=== PATIENT | male | born 1945 | race Caucasian/White ===

== ENCOUNTER → 2016-08-15 | Outpatient (CLI) | payer MEDICARE, OTHER ==
--- NOTE | 2016-08-15 12:24 | KCIC ---
PROCEDURE Chest CT without contrast. HISTORY Lung nodule follow-up TECHNIQUE Noncontrast CT imaging was performed of the chest, multiplanar reconstruction images submitted. Exposure: One or more of the following individualized dose reduction techniques were utilized for this exam: 1. Automated exposure control. 2. Adjustment of the mA and/or kV according to patient size. 3. Use of iterative reconstruction technique. COMPARISON August 21, 2015 FINDINGS There are again areas of bronchiectasis nodularity of the right middle lobe and the lingula. There are again some partially calcified nodules of the right and left upper lobes. Some grouped foci of nodularity posteriorly of the left upper lobe are less prominent although nodule of the left upper lobe axial image 48 series 2 up to 0.6 cm is new. More medial left upper lobe nodule axial image 63 up to 0.5 cm is smaller. Mild bronchiectasis and nodularity more medially of the right upper lobe is similar. There are some new small foci of grouped nodularity of the right upper lobe such as seen on axial images 22-27. Previously seen small nodules of the left lower lobe are less prominent such as seen on axial images 52-54. Previously seen right lower lobe nodules are overall similar. There again has been a median sternotomy. There is no new abnormal pericardial or pleural fluid, pneumothorax, lobar infiltrate. There is coronary calcification. Thoracic aortic caliber is similar. Major airways are patent. There are again some scattered hypodense foci of the visualized liver not convincingly changed, largest with density measurements suggestive of cysts. IMPRESSION 1. Comparing with August 2015 exam, there has been some variable change of bilateral lung nodules with some new foci of nodularity although other nodules which are less prominent. There are again some partially calcified nodules suggestive of component of old granulomatous disease. There is again bronchiectasis. While findings are more likely to be on a post inflammatory or postinfectious basis, given the new nodules, shorter term follow up such as in 3-6 months is recommended. Electronically signed by: Jamal Hernandez MD (Aug 15, 2016 12:22:06)
== END | disposition home or self-care (01) ==
LOC: KCIC CT 10:18
PROVIDERS: ATTEND Internal Medicine Critical Care Medicine
DX: R91.1 Solitary pulmonary nodule (principal)
CPT/HCPCS: 71250

== ENCOUNTER 2017-01-01 10:27 | Inpatient (IN) | payer MEDICARE, OTHER ==
[~2017-01-01] VITALS: Ht 170.2 cm; Wt 60.4 kg
--- NOTE | 2017-01-01 10:32 | PHYS DOC ---
Adult General Chief Complaint Chief Complaint: HEMATEMESIS/VOMITING BLOOD HPI HPI Patient is a 71 year old male who presents with coughing up blood. He states his been feeling completely normal and this morning he cleared his throat and he noticed some dark red blood. He states he did a couple more times and had small amounts and then had some bleeding out of his nose. He denies fevers chills nausea vomiting shortness of breath. He is not on anticoagulation other than aspirin. He has a follow-up appointment on Monday with Dr. Elsie Mckeon. Review of Systems Review of Systems Constitutional: Denies fever or chills [] Eyes: Denies change in visual acuity, redness, or eye pain [] HENT: Denies nasal congestion or sore throat [] Respiratory: Denies cough or shortness of breath [] Cardiovascular: No additional information not addressed in HPI [] GI: Denies abdominal pain, nausea, vomiting, bloody stools or diarrhea [] : Denies dysuria or hematuria [] Musculoskeletal: Denies back pain or joint pain [] Integument: Denies rash or skin lesions [] Neurologic: Denies headache, focal weakness or sensory changes [] Endocrine: Denies polyuria or polydipsia [] Current Medications Current Medications Current Medications Medications (Trade) Dose Ordered Sig/Preethi Start Time Stop Time Status Last Admin Dose Admin Info (Do NOT chart on this entry -- for MONITORING) 1 each PRN DAILY PRN 01/01/17 13:30 01/03/17 13:29 Iohexol (Omnipaque 300 Mg/ml) 75 ml 1X ONCE 01/01/17 13:30 01/01/17 13:31 DC 01/01/17 13:34 75 ML Allergies Allergies Allergies Coded Allergies Type Severity Reaction Last Updated Verified codeine Allergy Intermediate Nausea and Vomiting 01/01/17 Yes Physical Exam Physical Exam Constitutional: Well developed, well nourished, no acute distress, non-toxic appearance. [] HENT: Normocephalic, atraumatic, bilateral external ears normal, oropharynx moist, no oral exudates, nose normal. Small amount of dried blood in the anterior left Murphy, small abrasion in the right anterior left Murphy, no obvious bleeding at this time. Eyes: PERRLA, EOMI, conjunctiva normal, no discharge. [] Neck: Normal range of motion, no tenderness, supple, no stridor. [] Cardiovascular:Heart rate regular rhythm, no murmur [] Lungs & Thorax: Bilateral breath sounds clear to auscultation [] Abdomen: Bowel sounds normal, soft, no tenderness, no masses, no pulsatile masses. [] Skin: Warm, dry, no erythema, no rash. [] Back: No tenderness, no CVA tenderness. [] Extremities: No tenderness, no cyanosis, no clubbing, ROM intact, no edema. [] Neurologic: Alert and oriented X 3, normal motor function, normal sensory function, no focal deficits noted. [] Psychologic: Affect normal, judgement normal, mood normal. [] Current Patient Data Vital Signs Vital Signs Date Time Temp Pulse Resp B/P (MAP) Pulse Ox O2 Delivery O2 Flow Rate FiO2 01/01/17 14:00 56 16 164/76 (105) 98 Room Air 01/01/17 10:39 98.6 98.6 Lab Values Laboratory Tests Test 01/01/17 11:25 01/01/17 13:56 White Blood Count 7.3 x10^3/uL (4.0-11.0) Red Blood Count 4.80 x10^6/uL (4.30-5.70) Hemoglobin 14.6 g/dL (13.0-17.5) Hematocrit 44.0 % (39.0-53.0) Mean Corpuscular Volume 92 fL (79-100) Mean Corpuscular Hemoglobin 30 pg (25-35) Mean Corpuscular Hemoglobin Concent 33 g/dL (31-37) Red Cell Distribution Width 13.5 % (11.5-14.5) Platelet Count 209 x10^3/uL (140-400) Neutrophils (%) (Auto) 63 % (31-73) Lymphocytes (%) (Auto) 20 % (24-48) L Monocytes (%) (Auto) 11 % (0-9) H Eosinophils (%) (Auto) 4 % (0-3) H Basophils (%) (Auto) 1 % (0-3) Neutrophils # (Auto) 4.6 x10^3uL (1.8-7.7) Lymphocytes # (Auto) 1.5 x10^3/uL (1.0-4.8) Monocytes # (Auto) 0.8 x10^3/uL (0.0-1.1) Eosinophils # (Auto) 0.3 x10^3/uL (0.0-0.7) Basophils # (Auto) 0.1 x10^3/uL (0.0-0.2) Prothrombin Time 12.9 SEC (11.7-14.0) Prothrombin Time INR 1.0 (0.8-1.1) PTT 33 SEC (24-38) Sodium Level 142 mmol/L (136-145) Potassium Level 4.2 mmol/L (3.5-5.1) Chloride Level 106 mmol/L (98-107) Carbon Dioxide Level 28 mmol/L (21-32) Anion Gap 8 (6-14) Blood Urea Nitrogen 20 mg/dL (8-26) Creatinine 0.8 mg/dL (0.7-1.3) Estimated GFR (Cockcroft-Gault) 95.8 Glucose Level 94 mg/dL (70-99) Calcium Level 9.0 mg/dL (8.5-10.1) Total Bilirubin 0.6 mg/dL (0.2-1.0) Direct Bilirubin 0.2 mg/dL (0.0-0.2) Aspartate Amino Transferase (AST) 18 U/L (15-37) Alanine Aminotransferase (ALT) 24 U/L (16-63) Alkaline Phosphatase 70 U/L (46-116) Total Protein 6.9 g/dL (6.4-8.2) Albumin 3.5 g/dL (3.4-5.0) Urine Collection Type Unknown Urine Color Yellow Urine Clarity Clear Urine pH 7.0 Urine Specific [place] 1.025 Urine Protein Negative mg/dL (NEG-TRACE) Urine Glucose (UA) Negative mg/dL (NEG) Urine Ketones (Stick) Negative mg/dL (NEG) Urine Blood Negative (NEG) Urine Nitrite Negative (NEG) Urine Bilirubin Negative (NEG) Urine Urobilinogen Dipstick 0.2 mg/dL (0.2 mg/dL) Urine Leukocyte Esterase Negative (NEG) Urine RBC 3-5 /HPF (0-2) Urine WBC Occ /HPF (0-4) Urine Bacteria 0 /HPF (0-FEW) Urine Mucus Slight /LPF Laboratory Tests 01/01/17 11:25 Laboratory Tests 01/01/17 11:25 EKG EKG EKG shows sinus bradycardia with a rate of [address] elevations or T -wave inversions appreciated, normal axis, QTC 380 ms, as interpreted by me. Radiology/Procedures Radiology/Procedures [facility] [address] [place] [address] IMAGING REPORT Signed PATIENT: DANNA VILLEDA ACCOUNT: [id number] : 1945 LOCATION: ER AGE: 71 SEX: M EXAM STATUS: REG ER ORD. PHYSICIAN: LORENZO OMALLEY MD REASON: Hemoptysis PROCEDURE: CT ANGIOGRAPHY CHEST Indication: Hemoptysis. Technique: Axial images and coronal and sagittal maximum intensity projection reformatted images are provided. Chest radiograph from today and CT from August 15, 2016 were reviewed in comparison. 75 mL of intravenous Omnipaque 300 was administered without complication. One or more of the following individualized dose reduction techniques were utilized for this examination: 1. Automated exposure control 2. Adjustment of the mA and/or kV according to patient size 3. Use of iterative reconstruction technique Findings: Contrast bolus is satisfactory. There is no filling defect to suggest pulmonary embolism. There is atheromatous disease in the thoracic aorta. The heart is not enlarged. Coronary artery calcifications are noted. Central airways are patent. There is no pleural effusion. Multiple noncalcified pulmonary nodules are noted on the right. A few nodules demonstrate calcifications but not clearly a benign calcification pattern. These nodules measure up to 12 mm in size. There are a few nodules on the left as well. There is also right middle lobe bronchiectasis. There is minimal groundglass opacity in the left lower lobe. Low-density lesions within the liver measure up to 11 mm in size, could represent small cysts. These are incompletely characterized. There are degenerative changes in the spine. Median sternotomy wires are noted. Impression: 1. Negative for pulmonary embolism. 2. Multiple noncalcified pulmonary nodules, greater on the right, correspond to the areas of concern on recent chest radiograph. Findings have increased from prior CT chest. Small size would make percutaneous sampling technically difficult. A few of the larger nodules may be able to be evaluated by PET/CT. Alternatively, 3 month follow-up would be recommended of these nonincidental nodules. Nodules may be infectious, inflammatory, or neoplastic. DICTATED and SIGNED BY: REJI ROMANO MD DATE: 01/01/17 4229 CC: LORENZO OMALLEY MD; ELSIE MCKEON MD ~ Impressions: Hemoptysis History of MAC Course & Med Decision Making Course & Med Decision Making Pertinent Labs and Imaging studies reviewed. (See chart for details) He's had several episodes of coughing up blood into a tissue. He had a small amount of dried blood in his nose but there is nothing in the posterior pharynx that makes me suspect this is coming from his nose. I do not feel comfortable sending him home at this time as his bleeding has gotten worse briefly. 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 Spoke with Dr. Elsie Mckeon excepts the patient for admission. Spoke with regarding the patient's hemoptysis and possible need for hospital via if it persists. She is aware the patient and formal consultation has been placed. Patient's in stable condition he and his family is agreeable to plan and being admitted with interim orders written. Dragon Disclaimer Dragon Disclaimer This electronic medical record was generated, in whole or in part, using a voice recognition dictation system. Departure Departure Impression: Primary Impression: Hemoptysis Disposition: ADMITTED INPATIENT Admitting Physician: Elsie Mckeon Condition: STABLE Referrals: ELSIE MCKEON MD (PCP) LORENZO OMALLEY MD Jan 01, 2017 10:32
[2017-01-01 11:41] LABS: BASO # 0.1 x10^3/uL (0.0-0.2); BASO % 1 % (0-3); EOS % 4 % (0-3); HEMOGLOBIN 14.6 g/dL (13.0-17.5); LYMPH # 1.5 x10^3/uL (1.0-4.8); LYMPH % 20 % (24-48); MEAN CORPUSCULAR HEMOGLOBIN 30 pg (25-35); MEAN CORPUSCULAR HGB CONC 33 g/dL (31-37); MEAN CORPUSCULAR VOLUME 92 fL (79-100); MONO % 11 % (0-9); NEUT % 63 % (31-73); PLATELET COUNT 209 x10^3/uL (140-400); RED CELL DISTRIBUTION WIDTH 13.5 % (11.5-14.5); WHITE BLOOD COUNT 7.3 x10^3/uL (4.0-11.0)
[2017-01-01 11:47] LABS: CREATININE 0.8 mg/dL (0.7-1.3); GFR 95.8; POTASSIUM 4.2 mmol/L (3.5-5.1)
[2017-01-01 11:53] LABS: ALBUMIN 3.5 g/dL (3.4-5.0); DIRECT BILIRUBIN 0.2 mg/dL (0.0-0.2); TOTAL BILIRUBIN 0.6 mg/dL (0.2-1.0); TOTAL PROTEIN 6.9 g/dL (6.4-8.2)
[2017-01-01 12:01] LABS: PROTHROMBIN TIME PATIENT 12.9 SEC (11.7-14.0)
--- NOTE | 2017-01-01 12:54 | RAD ---
Indication: Hemoptysis. Technique: Two-view chest radiograph was obtained. Comparison is from March 14, 2012. Findings: Nodular opacities are noted in the right mid and lower lung field. The left lung is relatively clear. The heart is not enlarged and there is no heart failure. There is no pleural effusion. There are median sternotomy wires noted. Leads overlie the patient. Impression: Nodular opacities on the right. These could be infectious or inflammatory in etiology. Neoplastic etiology cannot be excluded. At the minimum, follow-up chest radiograph in 4-6 weeks is required.
[2017-01-01] MEDS ORDERED: IOHEXOL 300 MG/ML 75 ML VIAL IV ONE (13:30)
[2017-01-01] MEDS ORDERED: CONTRAST GIVEN MC PRN (13:30)
--- NOTE | 2017-01-01 13:51 | EKG ---
[facility] [address] [place] [address] Test Date: 2017-01-01 Test Time: 11:10:12 Pat Name: DANNA VILLEDA Department: Room: Gender: M [employer] Chair: : 1945 Requested By: LORENZO OMALLEY Order Number: [id number] Reading MD: Molly Vela Measurements Intervals [place] Rate: 49 P: 64 FL: 166 QRS: 30 QRSD: 90 T: 36 QT: 418 QTc: 380 Interpretive Statements SINUS BRADYCARDIA LEFT ATRIAL ABNORMALITY QRS(T) CONTOUR ABNORMALITY CONSIDER ANTEROSEPTAL MYOCARDIAL DAMAGE Electronically Signed On 01-01-2017 20:21:17 CDT by Molly Vela
--- NOTE | 2017-01-01 14:02 | RAD ---
Indication: Hemoptysis. Technique: Axial images and coronal and sagittal maximum intensity projection reformatted images are provided. Chest radiograph from today and CT from August 15, 2016 were reviewed in comparison. 75 mL of intravenous Omnipaque 300 was administered without complication. One or more of the following individualized dose reduction techniques were utilized for this examination: 1. Automated exposure control 2. Adjustment of the mA and/or kV according to patient size 3. Use of iterative reconstruction technique Findings: Contrast bolus is satisfactory. There is no filling defect to suggest pulmonary embolism. There is atheromatous disease in the thoracic aorta. The heart is not enlarged. Coronary artery calcifications are noted. Central airways are patent. There is no pleural effusion. Multiple noncalcified pulmonary nodules are noted on the right. A few nodules demonstrate calcifications but not clearly a benign calcification pattern. These nodules measure up to 12 mm in size. There are a few nodules on the left as well. There is also right middle lobe bronchiectasis. There is minimal groundglass opacity in the left lower lobe. Low-density lesions within the liver measure up to 11 mm in size, could represent small cysts. These are incompletely characterized. There are degenerative changes in the spine. Median sternotomy wires are noted. Impression: 1. Negative for pulmonary embolism. 2. Multiple noncalcified pulmonary nodules, greater on the right, correspond to the areas of concern on recent chest radiograph. Findings have increased from prior CT chest. Small size would make percutaneous sampling technically difficult. A few of the larger nodules may be able to be evaluated by PET/CT. Alternatively, 3 month follow-up would be recommended of these nonincidental nodules. Nodules may be infectious, inflammatory, or neoplastic.
[2017-01-01 14:04] LABS: BILIRUBIN,URINE NEGATIVE (NEG); GLUCOSE,URINE NEGATIVE (NEG); NITRITE,URINE NEGATIVE (NEG); PROTEIN,URINE NEGATIVE (NEG-TRACE); UROBILINOGEN,URINE 0.2 mg/dL (0.2 mg/dL)
[2017-01-01 14:16] LABS: BACTERIA,URINE 0 /HPF (0-FEW); WBC,URINE OCC /HPF (0-4)
[2017-01-01] MEDS ORDERED: ONDANSETRON PF 4 MG/2 ML VIAL. IV PRN (14:45)
[2017-01-01 15:40] VITALS: BP 167/68
[2017-01-01] MEDS ORDERED: METO25TA4 PO (15:57)
[2017-01-01] MEDS ORDERED: SIMV40TA3 PO (15:57)
[2017-01-01] MEDS ORDERED: TIZA4TAB PO (15:57)
[2017-01-01] MEDS ORDERED: ASPI325T8 PO (15:57)
[2017-01-01] MEDS ORDERED: OXYB5TAB7 PO (15:57)
[2017-01-01] MEDS ORDERED: SIMV20TA3 PO (15:59)
[2017-01-01] MEDS: IPRATRPIUM/ALBUTEROL 0.5/2.5MG 3 ML NEBU. NEB SCH ×2 (17:27→19:36)
[2017-01-01] MEDS: methylPREDNISolone SOD SUCC PF 40 MG/ML VIAL. IV SCH (18:13)
[2017-01-01 22:59] VITALS: BP 125/67
[2017-01-02] MEDS: methylPREDNISolone SOD SUCC PF 40 MG/ML VIAL. IV SCH ×4 (00:53→22:02)
[2017-01-02 03:00] VITALS: BP 114/64
--- NOTE | 2017-01-02 05:15 | ACF ---
Admission Forms Criteria GENERAL ADMISSION CRITERIA (Place 'X' for any and all applicable criteria): Admission is indicated for ANY ONE of the following: [ ]I. Hemodynamic instability as indicated by ANY ONE of the following(1)(2) (3)(4)(5): [ ]a) Vital sign abnormality not readily corrected by appropriate treatment within 12 to 24 hours indicated by ANY ONE of the following: [ ]i) Hypotension [ ]ii) Symptomatic Tachycardia unresponsive to treatment (eg , analgesia, fluids, sedation as indicated) [ ]iii) Orthostatic vital sign changes unresponsive to treatment (eg, fluids) [ ]b) Vital sign abnormality that is severe indicated by ANY ONE of the following: [ ]i) Inadequate perfusion indicated by ANY ONE of the following: [ ]1) Lactic acidosis (greater than 2 mmol/L) [ ]2) New abnormal capillary refill (greater than 3 seconds) [ ]3) Other metabolic acidosis (arterial pH less than 7.35) not otherwise explained [ ]4) Reduced urine output [ ]5) Altered mental status [ ]6) Myocardial Ischemia [ ]v) Mean arterial pressure[A] less than 60 mm Hg [ ]vi) Mean arterial pressure[A] less than 70 mm Hg after 30 minutes of appropriate treatment (eg, fluid resuscitation) [ ]vii) IV inotropic or vasopressor medication required to maintain adequate blood pressure or perfusion [ ]viii) Sustained heart rate greater than 120 beats per minute in adult or child 6 years or older[B]] [ ]II. Hypertension requiring inpatient treatment as indicated by ANY ONE of the following(6)(7)(8): [ ]a) SBP greater than 220 mm Hg or DBP greater than 120 mm Hg despite treatment [ ]b) SBP greater than 140 mm Hg or DBP greater than 100 mm Hg with evidence of acute end organ damage as indicated by ANY ONE of the following: [ ]i) Encephalopathy [ ]ii) Acute renal failure as indicated by new onset of ANY ONE of the following(9)(10)(11)(12)(13): [ ]1) A 3-fold rise in serum creatinine from baseline [ ]2) Serum creatinine greater than 4 mg/dL ( 354 micromoles/L) with acute rise greater than 0.5 mg/dL (44.2 micromoles/L) [ ]3) Reduction of more than 75% in estimated glomerular filtration rate from baseline [ ]4) Estimated glomerular filtration rate less than 35 mL/min/1.73m2 (0.59 mL/sec/1.73m2) in child up to 18 years of age [ ]5) Cessation of urine output indicated by ALL of the following: [ ]A. Adequate volume status [ ]B. Inadequate urine output as indicated by ANY ONE of the following: [ ]a. Urine output less than 0.3 mL/kg/hr for 24 hours [ ]b. Anuria (urine output less than 0.1 mL/kg/hr) for 12 hours [ ]iii) Aortic dissection [ ]iv) Myocardial ischemia [ ]v) Left ventricular heart failure [ ]vi) Retinal hemorrhage [ ]vii) Other significant finding [ ]c) Hypertension in child requiring inpatient treatment as indicated by ALL of the following(14)(15)(16): [ ]i) Outpatient treatment not effective, not available, or not appropriate [ ]ii) SBP or DBP greater than 95th percentile for age [ ]iii) Evidence of acute end organ damage as indicated by ANY ONE of the following: [ ]1) Altered mental status [ ]2) Acute renal failure as indicated by new onset of ANY ONE of the following(9)(10)(11)(12)(13): [ ]A. A 3-fold rise in serum creatinine from baseline [ ]B. Serum creatinine greater than 4 mg/dL (354 micromoles/L) with acute rise greater than 0.5 mg/dL (44.2 micromoles/L) [ ]C. Reduction of more than 75% in estimated glomerular filtration rate from baseline [ ]D. Estimated glomerular filtration rate less than 35 mL/min/1.73m2 (0.59 mL/sec/1.73m2)in child up to 18 years of age [ ]E. Cessation of urine output indicated by ALL of the following: [ ]a. Adequate volume status [ ]b. Inadequate urine output as indicated by ANY ONE of the following: [ ]1) Urine output less than 0.3 mL/kg/hr for 24 hours [ ]2) Anuria (urine output less than 0.1 mL/kg/hr) for 12 hours [ ]3) Severe headache [ ]4) Visual disturbance [ ]5) Retinal hemorrhage [ ]6) Other significant finding [ ]III. Acute cardiac or peripheral ischemia as indicated by ANY ONE of the following: [ ]a) Acute coronary syndrome(17)(18) [ ]b) Acute peripheral ischemia (eg, pulseless, cool, mottled, or cyanotic extremity)(19) [ ]IV. Cardiac arrhythmias or findings of immediate concern indicated by ANY ONE of the following(20)(21): [ ]a) Heart rhythms that are inherently dangerous or unstable indicated by ANY ONE of the following(22)(23)(24): [ ]i) Resuscitated ventricular fibrillation or cardiac arrest [ ]ii) Ventricular escape rhythm [ ]iii) Sustained ventricular tachycardia (30 seconds or more of ventricular rhythm at greater than 100 beats per minute) [ ]iv) Nonsustained ventricular tachycardia and ANY ONE of the following: [ ]1) Suspected cardiac ischemia as cause or consequence of ventricular tachycardia [ ]2) In setting of acute myocarditis [ ]b) Unstable cardiac conduction defects indicated by ANY ONE of the following(24)(25)(26): [ ]i) Type II second-degree atrioventricular block [ ]ii) Third-degree atrioventricular block [ ]iii) New-onset left bundle branch block with suspected myocardial ischemia [ ]c) Any heart rhythm and ANY ONE of the following(22)(23)(27)(28)( 29): [ ] i) Continuous long-term ECG monitoring needed (eg, initiation of drug requiring monitoring for more than 24 hours) [ ] ii) Patient has automatic implanted cardioverter defibrillator that is repeatedly firing, malfunctioning, or in need of immediate adjustment of settings beyond the scope of ambulatory or observation care. [ ]d) Heart rhythms of concern due to ANY ONE of the following: [ ]i) Hypotension [ ]ii) Respiratory distress [ ]iii) Association with other significant symptoms (eg, bradycardia with syncope or ongoing dizziness, supraventricular tachycardia with chest pain) (27)(28) (30) [ ] V. Severe heart failure as indicated by ANY ONE of the following ( 31)(32): [ ]a) Respiratory distress [ ]b) Hypotension [ ]c) Anasarca (refractory to outpatient therapy) [ ]d) Cardiac arrhythmias of immediate concern [ ]e) Myocardial ischemia [ ]. Respiratory abnormalities, including ANY ONE of the following(33)(34) (35)(36): [ ]a) Respiratory rate greater than 30 breaths per minute unresponsive to treatment [A] [ ]b) New saturation of arterial oxygen less than 90% [ ]c) New partial pressure of carbon dioxide greater than 44 mm Hg ( 5.9 kPa) [ ]d) Supplemental oxygen or respiratory treatments needed that are new or not performable at other levels of care [ ]e) New-onset cyanosis [ ]f) Inability to protect airway [ ]g) Chronic lung disease with severe deterioration (not responsive to emergency and observation care treatment as appropriate) as indicated by ANY ONE of the following(34)(36 ): [ ]i) SaO2 5% below baseline in patient with chronic hypoxemia [ ]ii) New requirement for supplemental oxygen to keep SaO2 at baseline or acceptable level [ ]iii) Required supplemental oxygen performable only in acute inpatient setting [ ]iv) Severe airflow or ventilation abnormalities [ ]v) Previously mobile patient unable to walk between rooms [ ]vi Inability to eat or sleep due to dyspnea [ ]vii) Rapid rate of exacerbation onset [ ]viii) Altered mental status ]VII. Severe airflow or ventilation abnormalities (not responsive to emergency and observation care treatment as appropriate) as indicated by ANY ONE of the following(33)(34)(35)(37): [ ]a) PCO2 greater than 42 mm Hg (5.6 kPa) and pH less than 7.35 (new ) [ ]b) Documented PCO2 increased more than 5 mm Hg (0.7 kPa) from disease baseline [ ]c) Airflow measurements [B] less than 60% of previous best or predicted (eg, peak expiratory flow rate less than 300 L/minute) despite intensive emergent treatment [C] [ ]d) Required respiratory treatments that are performable only in acute inpatient setting [ ]VIII. Impending or actual respiratory arrest ( Also use Respiratory Failure GRG for severe respiratory disease and long-term mechanical ventilation patients) [ ]IX. Neurologic abnormalities, including ANY ONE of the following: [ ]a) New findings that suggest ANY ONE of the following: [ ]i) [employer] infection(38) [ ]ii) Cerebral bleeding, ischemia, or vasospasm(39)(40) [ ]iii) Increased intracranial pressure, hydrocephalus, or cerebral edema(41)(42)(43) [ ]iv) Spinal cord injury(44) [ ]b) Uncontrolled seizures(45) [ ]c) New-onset coma (eg, Miranda coma scale score less than 9) or unexplained abnormal mental status (eg, Miranda coma scale score less than 14) [D](41)(46)(47) [ ]X. New-onset severe neurologic findings requiring inpatient care; examples include(42)(48)(49): [ ]a) Papilledema [ ]b) Cerebral edema [ ]c) Mass effect on CT scan [ ]XI. Suspected acute intra-abdominal process with peritoneal signs, abdominal mass, or similar findings (50)(51)(52) [ ]XII. Severe physiologic disorder remaining after emergency or observation level care (as appropriate) as indicated by ANY ONE of the following (53): [ ]a) Significant dehydration [ ]b) Diabetic ketoacidosis [ ]c) Hyperglycemic hyperosmolar state (eg, osmolality greater than 320 mOsm/kg (mmol/kg) [ ]d) Hypoglycemia [ ]e) Other (new) acid-base disorder with pH less than 7.35 or greater than 7.5(54) [ ]f) Thyroid storm (55) [ ]g) Myxedema coma (55) [ ]XIII. Abdominal abnormalities with ANY ONE of the following(56)(57): [ ]a) Absent bowel sounds with complete ileus [ ]b) Signs of intestinal obstruction or peritonitis [E] [ ]c) Nausea and vomiting that cannot be controlled with outpatient or observation care [ ]XIV. Acute renal failure as indicated by new onset of ANY ONE of the following(9)(10)(11)(12)(13): [ ]a) A 3-fold rise in serum creatinine from baseline [ ]b) Serum creatinine greater than 4 mg/dL (354 micromoles/L) with acute rise greater than 0.5 mg/dL (44.2 micromoles/L) [ ]c) Reduction of more than 75% in estimated glomerular filtration rate from baseline [ ]d) Estimated glomerular filtration rate less than 35 mL/min/ 1.73m2 (0.59 mL/sec/1.73m2) in child up to 18 years of age [ ]e) Cessation of urine output indicated by ALL of the following: [ ]i) Adequate volume status [ ]ii) Inadequate urine output as indicated by ANY ONE of the following: [ ]1) Urine output less than 0.3 mL/kg/hr for 24 hours [ ]2) Anuria (urine output less than 0.1 mL/kg/hr) for 12 hours [ ]XV. Significant uremic complications as indicated by ANY ONE of the following(58)(59)(60): [ ]a) Outpatient therapy is ineffective or not feasible for ANY ONE of the following: [ ]i) Severe heart failure [ ]ii) Severehypertension [ ]iii) Pleural effusion [ ]iv) Pericarditis or pericardial effusion [ ]b) Cardiac arrhythmias of immediate concern [ ]c) Intractable nausea or vomiting [ ]d) Recurrent seizures [ ]e) Encephalopathy [ ]f) Bleeding abnormalities (eg, platelet dysfunction) with active (eg, gastrointestinal) bleeding [ ]g) Dialysis indicated before long-term access or ambulatory arrangements can be made [ ]h) Significant metabolic or electrolyte abnormalities (eg, severe acidosis or hyperkalemia) [ ]XVI. High fever or other high-risk infection situation as indicated by ANY ONE of the following(61)(62)(63)(64): [ ]a) Outpatient and observation care antimicrobial treatment unavailable, not effective, or not appropriate [ ]b) Documented bacteremia [ ]c) Temperature greater than 40.5 degrees C (104.9 degrees F) ( oral) [ ]d) Temperature greater than 39.5 degrees C (103.1 degrees F) ( oral) or less than 36 degrees C (96.8 degrees F) (rectal) that does not respond to e treatment and observation care [ ] XVII. Temperature less than 95 degrees F (35 degrees C)(rectal)(65) [ ] XVIII. Severe nutritional abnormalities as indicated by ALL of the following (66)(67): [ ]a) Inability to tolerate or establish sufficient oral or other enteral nutrition in outpatient setting [ ]b) Parenteral nutrition regimen need that must be implemented on inpatient basis [ ] XIX. Severe electrolyte abnormalities indicated by ALL of the following(68) (69)(70): [ ]a) Electrolytes and associated findings are not as expected for patient baseline or acceptable treatment effects. [ ]b) Severe abnormalities indicated by ANY ONE of the following: [ ]i) Sodium less than 130 mEq/L (mmol/L) (new) [ ]ii)Sodium less than 135 mEq/L (mmol/L) with ANY ONE of the following: [ ]1) Uncorrectable (to near normal or chronic baseline) after trial of outpatient and emergency treatment [ ]2) Altered mental status [ ]3) Seizures [ ]4) Severe medical etiology requiring inpatient management (eg, heart failure, hypovolemia) [ ]iii) Sodium greater than 155 mEq/L (mmol/L) [ ]iv) Sodium greater than 150 mEq/L (mmol/L) with ANY ONE of the following: [ ]1) Uncorrectable (to near normal or chronic baseline) with outpatient and emergency treatment [ ]2) Altered mental status [ ]3) Seizures [ ]4) Severe medical etiology (eg, hypovolemia, diabetes insipidus) [ ]v) Potassium less than 2.5 mEq/L (mmol/L) despite outpatient and emergency treatment [ ]vi) Potassium less than 3 mEq/L (mmol/L) with ANY ONE of the following: [ ]1) Weakness [ ]2) Cardiac abnormality (eg, arrhythmia, conduction disturbance) [ ]3) Cardiac ischemia [ ]4) Ileus [ ]5) Ongoing medical cause requiring inpatient management (eg, acute renal wasting or SIADH) [ ]6) Other severe symptoms [ ]vii) Potassium greater than 6.5 mEq/L (mmol/L) [ ]viii) Potassium greater than 5 mEq/L (mmol/L) with ANY ONE of the following: [ ]1) Uncorrectable (to near normal or chronic baseline) with outpatient and emergency treatment [ ]2) Severe ECG findings [F] [ ]3) Acute worsening of renal failure (creatinine greater than 2.5 mg/dL (221 micromoles/L) or significant elevation for age and size) [ ]4) Severe weakness [ ]5) Severe medical etiology (eg, hemolysis, infection, drug overdose) [ ]ix) Calcium less than 7 mg/dL (1.75 mmol/L) despite outpatient and emergency treatment (72) [ ]x) Calcium less than 8 mg/dL (2 mmol/L) with significant symptoms or findings; examples include(72): [ ]1) Altered mental status [ ]2) Muscle spasms [ ]3) Seizures [ ]4) Breathing difficulty [ ]5) Cardiac abnormality (eg, arrhythmia or conduction disturbance) [ ]xi) Calcium greater than 14 mg/dL (3.5 mmol/L)(72) [ ]xii) Calcium greater than 12 mg/dL (3 mmol/L) with ANY ONE of the following(72): [ ]1) Uncorrectable (to near normal or chronic baseline) with outpatient and emergency treatment [ ]2) Significant dehydration or hypovolemia as indicated by ALL of the following(70)(73)(74): [ ]A. Not resolved with initial treatments [ ]B. Clinically significant dehydration as indicated by ANY ONE of the following: [ ]a. Vomiting refractory to outpatient treatment (ie, precluding oral rehydration) [ ]b. Inability to drink [ ]c. Hypernatremia or other electrolyte abnormality unable to be corrected with outpatient and emergency treatment [ ]d. Failure to remain hydrated with outpatient therapy [ ]e. Reduced urine output [ ]f. Hypotension [ ]g. Serious cause for dehydration requiring acute hospitalization (eg, bowel obstruction, increased intracranial pressure, infectious cause) [ ]h. Child with ANY ONE of the following(75): [ ]1) Severe abdominal tenderness [ ]2) Adequate care not available at home [ ]3) Severe dehydration ( greater than 9% loss of body weight) [ ]4) Significant symptoms or findings; examples include: [ ]A. Altered mental status [ ]B. Cardiac abnormality (eg, arrhythmia, conduction disturbance) [ ]C. Malignant etiology requiring inpatient treatment [ ]xiii) Phosphorus less than 1 mg/dL (0.32 mmol/L) [ ]xiv) Phosphorus less than 1.5 mg/dL (0.48 mmol/L) with ANY ONE of the following: [ ]1) Patient unresponsive to outpatient and emergency treatment [ ]2) Significant symptoms or findings; examples include: [ ]A. Weakness [ ]B. Altered mental status [ ]C. Breathing difficulty [ ]D. Seizures [ ]E. Rhabdomyolysis [ ]xv) Phosphorus greater than 10 mg/dL (3.2 mmol/L) [ ]xvi) Phosphorus greater than 4.5 mg/dL (1.45 mmol/L) (new) with ANY ONE of the following: [ ]1) Severe medical etiology (eg, crush injury, acute renal failure) [ ]2) Associated hypocalcemia with significant findings; examples include: [ ]A. Neurologic symptoms [ ]B. Altered mental status [ ]C. Muscle spasms [ ]D. Seizures [ ]E. Breathing difficulty [ ]F. Cardiac abnormality (eg, arrhythmia, conduction disturbance) [ ]xvii) Magnesium less than 1 mg/dL (0.41 mmol/L) [ ]xviii) Magnesium less than 1.5 mg/dL (0.62 mmol/L) with ANY ONE of the following: [ ]1) Patient unresponsive to outpatient and emergency treatment [ ]2) Associated hypocalcemia with significant findings; examples include: [ ]A. Altered mental status [ ]B. Muscle spasms [ ]C. Seizures [ ]D. Breathing difficulty [ ]E. Cardiac abnormality (eg, arrhythmia , conduction disturbance) [ ]3) Associated hypokalemia (potassium less than 3 mEq/L (mmol/L)) with risk of arrhythmia [ ]xix) Magnesium greater than 4 mEq/L (2 mmol/L) [ ]xx) Magnesium greater than 2.5 mEq/L (1.25 mmol/L) with significant symptoms or findings; examples include: [ ]1) Weakness [ ]2) Altered mental status [ ]3) Cardiac abnormality (eg, arrhythmia, conduction disturbance) [ ]4) Breathing difficulty [ ]5) Severe medical etiology (eg, renal failure, hypovolemia) [ ]xxi) Uric acid greater than 20 mg/dL (1190 micromoles/L)(76) [ ]xxii) Uric acid greater than 8 mg/dL (476 micromoles/L) with significant symptoms or findings of tumor lysis syndrome; examples include(76): [ ]1) Creatinine greater than 1.5 times upper limit of normal [ ]2) Cardiac abnormality (eg, arrhythmia, conduction disturbance) [ ]3) Seizure [ ]XX. Acute blood loss causing significant abnormality as indicated by ANY ONE of the following(77)(78): [ ]a) Hemoglobin less than 10 g/dL (100 g/L) (not baseline) [ ]b) Hematocrit less than 30% (0.30) (not baseline) [ ]c) Repeat hematocrit decreased more than 2% (0.02) [ ]d) Uncontrolled bleeding [ ]XXI. Severe anemia indicated by ANY ONE of the following(78)(79): [ ]a) Altered mental status [ ]b) Chest pain [ ]c) Exertional dyspnea [ ]d) Syncope [ ]e) Other findings suggesting inadequate perfusion [ ]f) Treatment with transfusion or volume replacement is ineffective at resolving ANY ONE of the following [G]: [ ]i) Tachycardia for age [ ]ii) Orthostatic vital sign changes as indicated by ANY ONE of the following(80): [ ]1) Fall in SBP of 20 mm Hg or more 1 to 3 minutes after patient sits or stands from recumbent position [ ]2) Fall in DBP of 10 mm Hg or more 1 to 3 minutes after patient sits or stands from recumbent position [ ]XXII. High-risk low platelet count as indicated by ANY ONE of the following( 81)(82): [ ]a) Severe or life-threatening bleeding (eg, intracranial, major gastrointestinal, or extensive mucosal bleeding), with any reduced platelet count [ ]b) Platelet count less than 20,000/mm3 (20 x109/L) with any active bleeding [ ]c) Platelet count less than 10,000/mm3 (10 x109/L) with minor purpura or petechiae [ ]d) Platelet count less than 5000/mm3 (5 x109/L) [ ]e) Low platelet count with hemolytic anemia [ ]XXIII. Disseminated intravascular coagulation(77)(83) [ ]XXIV. Severe adverse drug or systemic toxin reaction requiring inpatient treatment; examples include(84)(85): [ ]a) Serotonin syndrome(86) [ ]b) Neuroleptic malignant syndrome(86) [ ]c) Cholinergic syndrome with severe symptoms (eg, bronchorrhea, weakness, mental status changes, seizures) [ ]d) Sympathetic syndrome with severe symptoms (eg, seizures, mental status changes, cardiac dysrhythmias) [ ]e) Anticholinergic syndrome [ ]XXV. Severe pain requiring acute inpatient management as indicated by ALL of the following (87)(88)(89): [ ]a) Continuous or frequent (eg, every 2 to 4 hours) parenteral analgesics required [H] [ ]b) Rapid improvement expected from treatment or acute intervention (eg, surgery, anesthesia procedure) [ ]XXVI.Severe behavioral health issues judged unmanageable at a lower level of care (eg, residential) in a patient who is ANY ONE of the following(91) [ ]a) Acutely suicidal [ ]b) A danger to self (eg, self-mutilating or suicidal behavior) [ ]c) A danger to others (eg, assaultive or homicidal behavior) [ ]d) Incapacitated because of grave disability (eg, inability to provide for self at lower level of care) (92) [ X]XXVII. Inpatient monitoring needed; examples include(1)(3)(87)(93)(94)(95)( 96): [ X]a) Vital signs, neurologic signs, or vascular checks more frequently than every 4 hours [ ]b) Cardiac or respiratory monitoring beyond the scope (eg, over 24 hours) of observation care [ ]c) Pulmonary artery catheter monitoring [ ]d) Suspected compartment syndrome(97) (98) [ ]e) Cerebral bleeding, hydrocephalus, or vasospasm monitoring [ ]f) Increased intracranial pressure or cerebral edema monitoring [ ]g) monitoring [ ]XXVIII. Treatment requiring inpatient care; examples include: [ ]a) IV fluid to replace significant ongoing losses (greater than 3 L/m2 per day)(53) [ ]b) High concentration oxygen (greater than 40%)(33)(99)(100) [ ]c) Frequent respiratory therapy (more frequently than every 4 hours) to maintain airflow rates greater than 60% of baseline(33)(99)(100) [ ]d) Epidural analgesia(87) [ ]e) IV anticoagulation, vasoactive, or antiarrhythmic medication(19 )(23) [ ]f) Acute thrombolytics (generally require 24 hours of observation )(101)(102) [ ]XXIX. Emergency procedures needed; examples include: [ ]a) Emergency inpatient surgery [ ]b) Temporary pacemaker placement(103) [ ]c) Chest tube placement with active evacuation (eg, suction, drainage)(104) [ ]d) Emergent cardioversion(105) [ ]e) Emergent cardiac or vascular procedures (eg, cardiac catheterization, angioplasty) (17)(18) [ ]f) Emergent dialysis access placement and institution(10)(106) [ ]g) Emergent pericardiocentesis(107) [ ]h) Emergent plasmapheresis or leukapheresis(83) [ ]i) Emergent tracheostomy The original [employer] content created by [employer] has been revised. The portions of the content which have been revised are identified through the use of italic text or in bold, and [email or web address]eria[facility] [employer] has neither reviewed nor approved the modified material. All other unmodified content is copyright [employer]. Please see references footnoted in the original [employer] edition 2016 Admission Criteria Met?: Yes FRED HARPER Jan 02, 2017 05:15
[2017-01-02 06:30] LABS: BASO # 0.1 x10^3/uL (0.0-0.2); BASO % 1 % (0-3); EOS % 0 % (0-3); HEMOGLOBIN 14.9 g/dL (13.0-17.5); LYMPH # 0.5 x10^3/uL (1.0-4.8); LYMPH % 8 % (24-48); MEAN CORPUSCULAR HEMOGLOBIN 31 pg (25-35); MEAN CORPUSCULAR HGB CONC 34 g/dL (31-37); MEAN CORPUSCULAR VOLUME 90 fL (79-100); MONO % 1 % (0-9); NEUT % 90 % (31-73); PLATELET COUNT 246 x10^3/uL (140-400); RED BLOOD COUNT 4.87 x10^6/uL (4.30-5.70); RED CELL DISTRIBUTION WIDTH 13.5 % (11.5-14.5); WHITE BLOOD COUNT 6.3 x10^3/uL (4.0-11.0)
[2017-01-02 06:52] LABS: CALCIUM 9.1 mg/dL (8.5-10.1); GFR 74.1; POTASSIUM 3.7 mmol/L (3.5-5.1)
[2017-01-02 07:00] VITALS: BP 143/71
[2017-01-02] MEDS: IPRATRPIUM/ALBUTEROL 0.5/2.5MG 3 ML NEBU. NEB SCH ×4 (07:28→19:35)
--- NOTE | 2017-01-02 08:29 | PDOC ---
Provider Note Provider Note [id number] ELSIE MCKEON MD Jan 02, 2017 08:29
[2017-01-02 08:39] LABS: PLT ESTIMATE ADEQUATE (ADEQUATE)
[2017-01-02] MEDS ORDERED: tiZANidine 4 MG TABLET. PO SCH (09:00)
--- NOTE | 2017-01-02 09:04 | HP ---
ADMIT DATE: 01/01/2017 CHIEF COMPLAINT: Hemoptysis. HISTORY OF PRESENT ILLNESS: A 71-year-old white male who about 5 years ago during preoperative evaluation for coronary bypass was found to have bilateral lung nodules. 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 Jiang with yearly CTs over the last 5 years, the last about one year ago. He has not been treated for this specifically as this was asymptomatic and there has been no progression of the lung nodules and the treatment was felt to be perhaps more harm than the benefit. On the day of admission, he develops cough and fairly quickly some hemoptysis with clots and fairly bright red blood. There has been no epistaxis, fever, chills, weight loss, night sweats, or other systemic symptoms and he has had no chest pain, acid reflux or other complaints to cause this problem. CT scan showed perhaps a small increase in some of the lung nodules, right greater than left. PAST MEDICAL HISTORY: He also has MS and has hemiparesis in the right side as a result. He has had coronary bypass surgery, takes aspirin, simvastatin, and metoprolol. ALLERGIES: CODEINE listed. SOCIAL HISTORY: Always a nonsmoker. , physically active. FAMILY HISTORY: Unremarkable. REVIEW OF SYSTEMS: No other complaints. PHYSICAL EXAMINATION: ENT: All within normal limits. No pharynx or nasal lesions seen. NECK: No carotid bruits, nodes or masses. LUNGS: Clear with no wheezing or rales. CARDIOVASCULAR: Regular rate, rate is about 100. No murmurs heard. ABDOMEN: Soft, benign and nontender. EXTREMITIES: Good pedal and radial pulses. No joint or skin lesions or nail bed findings. NEUROLOGIC: Right arm shows hemiparesis with contracture weakness at the right elbow and wrist. Speech, mentation, cranial nerves and cerebellar function appears to be normal. Mental status is normal. ASSESSMENT: 1. 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 2. Stable coronary artery disease status post bypass surgery. PLAN: Check a sed rate, hold aspirin. Dr. Jiang will see today. Consider bronchoscopy to visualize source of the bleeding if possible and evaluate further. ELSIE MCKEON MD DR: STEPHANIE/pavel JOB#: [id number] / [id number]
[2017-01-02 10:00] VITALS: BP 129/69
--- NOTE | 2017-01-02 10:24 | PDOC ---
Provider Note Provider Note dictated Bronch at 1 pm DONTRELL PARKER MD Jan 02, 2017 10:24
[2017-01-02] MEDS ORDERED: guaiFENesin DM 200MG/20MG 10 ML SYRUP PO PRN (10:30)
[2017-01-02] MEDS ORDERED: PIP/TAZO PER PHARMACY MC PRN (10:30)
--- NOTE | 2017-01-02 11:15 | CONS ---
DATE OF CONSULTATION: ATTENDING PHYSICIAN: Dr. Alan Ortiz. REASON FOR CONSULTATION: Hemoptysis, history of MAC infection. HISTORY OF PRESENT ILLNESS: The patient is very well known to me. This 71-year-old male who has multiple sclerosis and has hemiparesis on the right side as a result of that. He has been followed up by me in the office for over 5 years for Mycobacterium avium complex infection, nodular subtype. The patient had been asymptomatic all along. He had prior bronchoscopy and also CT-guided biopsy of the nodules ____ them for MAC infection, but due to lack of symptoms. He opted not to undergo any treatment and wanted to avoid any side effects. I had multiple discussions many, many times with him and I respected his decisions. The patient now presents with cough with bright red blood. He said he was walking to the [place] and then when he came home, he started to have fairly bright red blood. He said he had at least 4 episodes. He denies any obvious epistaxis. No fever, no chills. No weight loss, no night sweats. The patient's CT of the chest was performed on evaluation in the ER, which was reviewed by me. He has bilateral lung nodules, more on the right than on the left. It is difficult to assess for any change in the size and few may have increased. He has a right middle lobe bronchiectases and also has mild ground glass infiltrates in the left lower lobe which appears to be new. He does not take any blood thinners. I have been asked to see him for further evaluation. PAST MEDICAL HISTORY: Significant of progressive multiple sclerosis, history of Mycobacterium avium infection isolated from bronchoscopy and also CT-guided needle aspiration of the lung nodules, history of hemiparesis due to multiple sclerosis, history of coronary artery bypass surgery, history of dyslipidemia. PAST SURGICAL HISTORY: No recent surgery. ALLERGIES: CODEINE. SOCIAL HISTORY: Quit tobacco 40 years ago, before that smoked only for 5 years. FAMILY HISTORY: Noncontributory to lungs. REVIEW OF SYSTEMS: Twelve-point system obtained. Pertinent positives discussed in history of present illness, otherwise noncontributory. All systems that were negative were reviewed as well. MEDICATIONS: All reviewed as listed in the MRAD. PHYSICAL EXAMINATION: GENERAL: He is in no obvious respiratory distress. VITAL SIGNS: Blood pressure stable, afebrile, pulse ox 93% on room air. NECK: Supple. LUNGS: With diminished breath sounds. CARDIOVASCULAR: Regular rate and rhythm. ABDOMEN: Soft. EXTREMITIES: With no pitting edema. LABORATORY DATA: Reviewed. His INR is 1.0. His BUN and creatinine 17 and 1.0. White cell count 6.3, hemoglobin is 14.9, and platelets are 246. IMPRESSION: 1. Acute hemoptysis in a patient who has Mycobacterium avium infection proven by bronchoscopy and CT-guided needle aspiration in the past. He has no epistaxis. His CT chest has shown only a minimal change in the nodules size and a new ground glass infiltrate in the left lower lobe. The differential diagnosis of hemoptysis will be broad. Unlikely any malignancy. I would favor an infectious cause, could be viral pneumonitis versus related to progressive Mycobacterium avium infection. He would benefit from diagnostic bronchoscopy. 2. History of Mycobacterium avium complex infection, nodular type proven by bronchoscopy cultures as well as the fine needle aspiration of the left lung nodules in the past. Per patient's wishes, he opted not to be treated as he was asymptomatic. I had multiple discussions in the last 5 years and he never wanted to be treated. I had respect his decisions. Difficult to rule out any progression of this disease. 3. No significant history of tobacco use. RECOMMENDATIONS: 1. Discussed with the patient the need for diagnostic bronchoscopy. All risks and benefits were explained and he agreed to proceed with the procedure. 2. Add empiric antibiotics. 3. Cough suppressants. 4. Continue with steroids as a cough suppressant and to reduce airway inflammation. 5. If the source of hemoptysis can be isolated via bronchoscopy and if continues to have bright red blood then he may be a candidate for bronchial artery embolization. Discussed with the patient's and further recommendations to follow after bronchoscopy. DONTRELL PARKER MD DR: JEANNETTE/pavel JOB#: [id number] / [id number] WING
[2017-01-02] MEDS ORDERED: ALBUTEROL SULFATE 2.5 MG/3 ML NEBU. ONE (12:39)
[2017-01-02] MEDS ORDERED: PROPOFOL 40 ML IV ONE (13:05)
--- NOTE | 2017-01-02 14:08 | OP ---
DATE OF SURGERY: BRONCHOSCOPY NOTE INDICATIONS: Bright red hemoptysis. DESCRIPTION OF PROCEDURE: Informed consent was obtained from the patient. All risks and benefits were explained for the procedure. The patient had bronchoscopy in the past as well. The patient agreed to proceed. Propofol was used by anesthesia for sedation. Bronch was introduced through the right nostril. The upper airway was passed. There was some fresh blood seen proximal to the vocal cords, which moves equally with respiration. Trachea was entered. Large amount of clots were seen in the distal trachea and also at the opening of the right upper lobe. Upon further inspection of the right upper lobe, it appears that the blood was coming from the anterior and posterior subsegments of the right upper lobe bronchus. The vessels were very inflamed. No definite endobronchial lesions seen. Saline irrigation done and all clots were removed to have a better assessment of the airway. Squirts of epinephrine were introduced into the subsegments of the right upper lobe and I did not see any fresh blood after that. Bronch was then introduced into the right middle lobe and also in the right lower lobe. Minimal oozing of blood was seen from the lateral subsegment of right middle lobe and epinephrine squirts were also introduced there. No endobronchial lesions seen. The right lower lobe was patent. The left lung was examined. No active bleeding seen in the left upper lobe, lingula or left lower lobe. There was some blood that had trickled down into the left upper lobe was aspirated. The patient tolerated the procedure well, except for mild tachycardia. Bronchoalveolar lavage performed from the right upper lobe subsegments times 2. IMPRESSION: 1. Fresh blood seen in the anterior and posterior sub-segments of the right upper lobe, with severely inflamed mucosa. Saline irrigation done and clots were removed from this subsegment, This was the source of his hemoptysis. No endobronchial lesions seen. Squirts of epinephrine were introduced into these sub-segments, which did stop the bleeding. Further inspection of the right middle lobe revealed minimal oozing of blood from the lateral subsegment and epinephrine squirts were introduced there as well. 2. No obvious bleeding seen in the left lung or the right lower lobe. 3. Bronchoalveolar lavage performed from the right upper lobe multiple sub-segments and sent for appropriate studies. DONTRELL U. PARKER, MD DR: JEANNETTE/pavel JOB#: [id number] / [id number] WING
[2017-01-02 15:06] VITALS: BP 134/64
[2017-01-02] MEDS: OXYBUTYNIN CHLORIDE 5 MG TABLET PO SCH (15:35)
[2017-01-02] MEDS: METOPROLOL TART IMMED RELEASE 25 MG TABLET. PO SCH ×2 (15:36→22:00)
[2017-01-02] MEDS: PIPERACILLIN/TAZOBACTAM 4.5 GM in IV NORMAL SALINE 100ML 100 ML IV SCH ×2 (15:36→18:06)
[2017-01-02 19:00] VITALS: BP 104/65
[2017-01-02] MEDS ORDERED: SIMVASTATIN 20 MG TABLET PO SCH (21:00)
[2017-01-02] MEDS: tiZANidine 4 MG TABLET. PO SCH (22:01)
[2017-01-02 22:51] VITALS: BP 109/61
[2017-01-03] MEDS: PIPERACILLIN/TAZOBACTAM 4.5 GM in IV NORMAL SALINE 100ML 100 ML IV SCH ×2 (01:10→06:32)
[2017-01-03] MEDS: methylPREDNISolone SOD SUCC PF 40 MG/ML VIAL. IV SCH (06:32)
[2017-01-03 07:00] VITALS: BP 130/59
[2017-01-03] MEDS: IPRATRPIUM/ALBUTEROL 0.5/2.5MG 3 ML NEBU. NEB SCH ×2 (07:34→11:23)
--- NOTE | 2017-01-03 08:03 | PDOC ---
Provider Note Provider Note vss, no temp, labs ok- bronch report pending, on zosyn/steroid/ nebs- will see what dr wall thinks re bronch ELSIE MCKEON MD Jan 03, 2017 08:03
[2017-01-03] MEDS: METOPROLOL TART IMMED RELEASE 25 MG TABLET. PO SCH (08:42)
[2017-01-03] MEDS: OXYBUTYNIN CHLORIDE 5 MG TABLET PO SCH (08:42)
[2017-01-03] MEDS: tiZANidine 4 MG TABLET. PO SCH (09:00)
--- NOTE | 2017-01-03 09:48 | PDOC ---
PULMONARY PROGRESS NOTES Subjective s/p Bronch hemoptysis resolved. Vitals Vital Signs Date Time Temp Pulse Resp B/P (MAP) Pulse Ox O2 Delivery O2 Flow Rate FiO2 01/03/17 08:42 65 130/59 01/03/17 07:36 98 Room Air 01/03/17 07:00 97.7 18 97.7 01/02/17 13:45 5 General: Alert, No acute distress Lungs: Clear Cardiovascular: S1 Abdomen: Soft Neuro Exam: Alert Extremities: No Edema Skin: Warm Labs Laboratory Tests Test 01/01/17 11:25 01/01/17 13:56 01/02/17 05:50 01/02/17 20:26 White Blood Count 7.3 x10^3/uL (4.0-11.0) 6.3 x10^3/uL (4.0-11.0) Red Blood Count 4.80 x10^6/uL (4.30-5.70) 4.87 x10^6/uL (4.30-5.70) Hemoglobin 14.6 g/dL (13.0-17.5) 14.9 g/dL (13.0-17.5) Hematocrit 44.0 % (39.0-53.0) 44.0 % (39.0-53.0) Mean Corpuscular Volume 92 fL (79-100) 90 fL (79-100) Mean Corpuscular Hemoglobin 30 pg (25-35) 31 pg (25-35) Mean Corpuscular Hemoglobin Concent 33 g/dL (31-37) 34 g/dL (31-37) Red Cell Distribution Width 13.5 % (11.5-14.5) 13.5 % (11.5-14.5) Platelet Count 209 x10^3/uL (140-400) 246 x10^3/uL (140-400) Neutrophils (%) (Auto) 63 % (31-73) 90 % (31-73) Lymphocytes (%) (Auto) 20 % (24-48) 8 % (24-48) Monocytes (%) (Auto) 11 % (0-9) 1 % (0-9) Eosinophils (%) (Auto) 4 % (0-3) 0 % (0-3) Basophils (%) (Auto) 1 % (0-3) 1 % (0-3) Neutrophils # (Auto) 4.6 x10^3uL (1.8-7.7) 5.7 x10^3uL (1.8-7.7) Lymphocytes # (Auto) 1.5 x10^3/uL (1.0-4.8) 0.5 x10^3/uL (1.0-4.8) Monocytes # (Auto) 0.8 x10^3/uL (0.0-1.1) 0.1 x10^3/uL (0.0-1.1) Eosinophils # (Auto) 0.3 x10^3/uL (0.0-0.7) 0.0 x10^3/uL (0.0-0.7) Basophils # (Auto) 0.1 x10^3/uL (0.0-0.2) 0.1 x10^3/uL (0.0-0.2) Prothrombin Time 12.9 SEC (11.7-14.0) Prothromb Time International Ratio 1.0 (0.8-1.1) Activated Partial Thromboplast Time 33 SEC (24-38) Sodium Level 142 mmol/L (136-145) 140 mmol/L (136-145) Potassium Level 4.2 mmol/L (3.5-5.1) 3.7 mmol/L (3.5-5.1) Chloride Level 106 mmol/L (98-107) 104 mmol/L (98-107) Carbon Dioxide Level 28 mmol/L (21-32) 21 mmol/L (21-32) Anion Gap 8 (6-14) 15 (6-14) Blood Urea Nitrogen 20 mg/dL (8-26) 17 mg/dL (8-26) Creatinine 0.8 mg/dL (0.7-1.3) 1.0 mg/dL (0.7-1.3) Estimated GFR (Cockcroft-Gault) 95.8 74.1 Glucose Level 94 mg/dL (70-99) 181 mg/dL (70-99) Calcium Level 9.0 mg/dL (8.5-10.1) 9.1 mg/dL (8.5-10.1) Total Bilirubin 0.6 mg/dL (0.2-1.0) Direct Bilirubin 0.2 mg/dL (0.0-0.2) Aspartate Amino Transf (AST/SGOT) 18 U/L (15-37) Alanine Aminotransferase (ALT/SGPT) 24 U/L (16-63) Alkaline Phosphatase 70 U/L (46-116) Total Protein 6.9 g/dL (6.4-8.2) Albumin 3.5 g/dL (3.4-5.0) Urine Collection Type Unknown Urine Color Yellow Urine Clarity Clear Urine pH 7.0 Urine Specific Dewitt 1.025 Urine Protein Negative mg/dL (NEG-TRACE) Urine Glucose (UA) Negative mg/dL (NEG) Urine Ketones (Stick) Negative mg/dL (NEG) Urine Blood Negative (NEG) Urine Nitrite Negative (NEG) Urine Bilirubin Negative (NEG) Urine Urobilinogen Dipstick 0.2 mg/dL (0.2 mg/dL) Urine Leukocyte Esterase Negative (NEG) Urine RBC 3-5 /HPF (0-2) Urine WBC Occ /HPF (0-4) Urine Bacteria 0 /HPF (0-FEW) Urine Mucus Slight /LPF Segmented Neutrophils % 90 % (35-66) Band Neutrophils % 2 % (0-9) Lymphocytes % 7 % (24-48) Monocytes % 1 % (0-10) Platelet Estimate Adequate (ADEQUATE) Erythrocyte Sedimentation Rate 5 (0-15) Glucose (Fingerstick) 212 mg/dL (70-99) Test 01/03/17 07:52 Glucose (Fingerstick) 147 mg/dL (70-99) Laboratory Tests Test 01/02/17 20:26 01/03/17 07:52 Glucose (Fingerstick) 212 mg/dL (70-99) 147 mg/dL (70-99) Medications Active Scripts Medications Dose Route/Sig Max Daily Dose Days Date Category Simvastatin 20 Mg Tablet 1 Tab PO QHS 01/01/17 Reported Tizanidine Hcl 4 Mg Tablet 2 Mg PO DAILY 01/01/17 Reported Oxybutynin Chloride 5 Mg Tablet 5 Mg PO DAILY 01/01/17 Reported Aspirin 325 Mg Tablet 1 Tab PO DAILY 01/01/17 Reported Metoprolol Tartrate 25 Mg Tablet 12.5 Mg PO BID 01/01/17 Reported Impression . 1. Acute hemoptysis in a patient who has Mycobacterium avium infection proven by bronchoscopy and CT-guided needle aspiration in the past. He has no epistaxis. His CT chest has shown only a minimal change in the nodules size and a new ground glass infiltrate in the left lower lobe. The differential diagnosis of hemoptysis will be broad. Unlikely any malignancy. I would favor an infectious cause, could be viral pneumonitis versus related to progressive Mycobacterium avium infection. s/p diagnostic and therapeutic bronchoscopy. 2. History of Mycobacterium avium complex infection, nodular type proven by bronchoscopy cultures as well as the fine needle aspiration of the left lung nodules in the past. Per patient's wishes, he opted not to be treated as he was asymptomatic. I had multiple discussions in the last 5 years and he never wanted to be treated. I had respected his decisions. 3. No significant history of tobacco use. Plan . 1. s/p diagnostic and therapeutic bronchoscopy. Clots seen in RULsub-segments. bleeding stopped with epi squirts and no recurrence. No endobronchial lesion seen. Airway inflamed in RUL . could be due to MAC vs viral or bacterial infection. await all cultures 2. change to PO antibiotics. 3. Cough suppressants. 4. Continue with steroids as a cough suppressant and to reduce airway inflammation. 5. CAN GO HOME AND F/U WITH ME IN 4-6 WEEKS TO REVIEW CULTURES. IF PERSISTENT MAC, HE WILL HAVE TO RE-THINK ABOUT RX OF MAC Discussed with the patient's DONTRELL PARKER MD Jan 03, 2017 09:48
[2017-01-03 11:00] VITALS: BP 113/69
--- NOTE | 2017-01-03 11:24 | DS ---
DATE OF DISCHARGE: 01/03/2017 HOSPITAL SUMMARY: A 71-year-old white male with a history of MAC, not sure of type, followed by Dr. Jiang for at least the last [address] scans. He came in with some episodes of bright red hemoptysis without any other symptoms of fever, chills, chest pain or other complaints. CT scan showed minimal change in the nodules and hemoptysis did not recur. Dr. Jiang did a bronchoscopy, which revealed some bleeding lesions at the entrance of the right upper lobe, but no other abnormalities were found. These were treated topically. He was given IV Zosyn and steroids and seemed to improve and Dr. Jiang is comfortable to follow him as an outpatient at this point. FINAL DIAGNOSES: 1. Acute hemoptysis, likely secondary to bronchitis. 2. 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 OPERATIONS AND PROCEDURES: Bronchoscopy. COMPLICATIONS: None. CONSULTATIONS: Dr. Jiang. DISPOSITION: He will take Augmentin 875 twice a day for 5 more days, prednisone taper over 5 days and follow up with Dr. Ortiz in 1-3 weeks, Dr. Jiang in 6 weeks. He has not been treated for the MAC infection as he has declined the treatment, which would be at least a year and pretty significant morbidity of the drugs versus benefit. PROGNOSIS: Good. ELSIE ORTIZ MD DR: STEPHANIE/pavel JOB#: [id number] / [id number]
--- NOTE | 2017-01-03 14:44 | PATHOLOGY ---
CYTOPATHOLOGY REPORT CLINICAL HISTORY: Hemoptysis. SPECIMEN(S) RECEIVED: A.Bronchoalveolar lavage, RUL #1 B.Bronchoalveolar lavage, RUL #2 FINAL DIAGNOSIS: A. Right upper lobe, bronchoalveolar lavage #1, ThinPrep: - No malignant cells identified. -Paucicellular specimen consisting predominantly of scattered inflammatory cells with rare bronchial epithelial cells and pulmonary macrophages identified. B. Right upper lobe, bronchoalveolar lavage #2: - No malignant cells identified. - Focally reactive bronchial epithelial cells, pulmonary macrophages, and inflammatory cells identified. (JPM:mml; 01/03/2017) PATHOLOGIST: Cornell Tariq M.D. REPORT ELECTRONICALLY SIGNED BY: Cornell Tariq M.D. DATE/TIME: 01/03/2017 14:43 GROSS PATHOLOGY: A. Bronchoalveolar lavage, RUL #1: The specimen is submitted unfixed, labeled "Danna Davis". Received by the Cytology Department is two mL of red fluid. One ThinPrep slide was prepared. B. Bronchoalveolar lavage, RUL #2: The specimen is submitted unfixed, labeled "Danna Davis D". Received by the Cytology Department is 5 mL of cloudy pink fluid. One ThinPrep slide was prepared. (clt 01.02.2017) CLIENT APPLICATION SUPPORT SPECIALIST(S): LINNEA Lobato([facility]) INITIAL CPT CODE(S): A; 22941 B; 10353 Professional services performed [place] [place] [address] Technical services performed by [facility] at [address] [place] [address], [address] [address]. PATIENT: DANNA DAVIS /AGE: [id number] 1945 (Age: 71) SEX: M PATIENT #: [id number] ALT CASE #: SPECIMEN COLLECTION DATE: 01/02/2017 SPECIMEN RECEIVED DATE: 01/02/[address] [facility] [address] [place] [address], [address] [place] [address] PHONE: [phone] DIRECTOR: David Walker M.D. * * * END OF REPORT * * *
== END 2017-01-03 13:00 | disposition home or self-care (01) | DRG 167 ==
LOC: ER 10:27 → 1 WEST ICU 14:30 → 5 SOUTH 21:27
PROVIDERS: ADMIT Family Medicine; ATTEND Family Medicine
PROC: 0B9C8ZX Drainage of Right Upper Lung Lobe, Via Natural or Artificial Opening Endoscopic, Diagnostic (ICD-10-PCS; principal; 2017-01-01)
PROC: 0BC48ZZ Extirpation of Matter from Right Upper Lobe Bronchus, Via Natural or Artificial Opening Endoscopic (ICD-10-PCS; 2017-01-01)
PROC: 3E0F8GC Introduction of Other Therapeutic Substance into Respiratory Tract, Via Natural or Artificial Opening Endoscopic (ICD-10-PCS; 2017-01-01)
DX: J40 Bronchitis, not specified as acute or chronic (principal); G81.91 Hemiplegia, unspecified affecting right dominant side; G35 Multiple sclerosis; R04.2 Hemoptysis; E78.5 Hyperlipidemia, unspecified; I25.10 Atherosclerotic heart disease of native coronary artery without angina pectoris; Z79.82 Long term (current) use of aspirin; Z87.891 Personal history of nicotine dependence; Z95.1 Presence of aortocoronary bypass graft; Z88.5 Allergy status to narcotic agent
CPT/HCPCS: 31622; 36415; 71020; 71275; 80048; 80076; 81001; 82962; 85007; 85025; 85610; 85651; 85730; 86850; 86900; 86901; 87070; 87102; 87116; 87205; 88112; 93005; 94250; 94640; 94760; J2543; J2704; J2920; J7620; Q9967; 99285-25

== ENCOUNTER → 2017-08-18 | Outpatient (CLI) | payer MEDICARE, OTHER | END | disposition home or self-care (01) | LOC: KCIC CT 10:02 | DX: J47.9 Bronchiectasis, uncomplicated (principal); J84.10 Pulmonary fibrosis, unspecified; I25.10 Atherosclerotic heart disease of native coronary artery without angina pectoris; Z79.01 Long term (current) use of anticoagulants | CPT/HCPCS: 71250 ==

== ENCOUNTER → 2019-04-17 | Day surgery (SDC) | payer MEDICARE ==
[~2019-04-17] MED LIST: ASPI325T8 PO; IV RINGERS,LACTATED 1000ML 1,000 ML IV ONE; METO25TA4 PO; OXYB5TAB10 PO; PROPOFOL 20 ML IV ONE; SIMV20TA18 PO; SIMV40TA18 PO; TIZA4TAB2 PO
[2019-04-17 09:21] VITALS: BP 119/68
== END ==
LOC: ENDOS 07:51
PROVIDERS: ATTEND Internal Medicine Gastroenterology
DX: K59.00 Constipation, unspecified (principal); K57.30 Diverticulosis of large intestine without perforation or abscess without bleeding; K64.0 First degree hemorrhoids; I25.2 Old myocardial infarction; G35 Multiple sclerosis; F15.90 Other stimulant use, unspecified, uncomplicated; Z98.890 Other specified postprocedural states; Z72.89 Other problems related to lifestyle; Z87.891 Personal history of nicotine dependence
CPT/HCPCS: 45378; J2704

== ENCOUNTER → 2019-07-25 | Outpatient (CLI) | payer MEDICARE ==
[2019-04-17 09:21] VITALS: BP 119/68
[~2019-07-25] MED LIST changes: -IV RINGERS,LACTATED 1000ML 1,000 ML IV ONE; -PROPOFOL 20 ML IV ONE
--- NOTE | 2019-07-25 13:11 | KCIC ---
KNEE 3 VIEWS LEFT Clinical Indication: Left knee pain and swelling after a fall. Comparison: None. Findings: There is no acute fracture or dislocation. There is mild medial compartment narrowing. The patella is in anatomic position. There is moderate prepatellar and infrapatellar soft tissue swelling. There is no joint effusion. IMPRESSION: 1. No acute fracture. 2. Moderate infrapatellar soft tissue swelling. Electronically signed by: Alfa Doe MD (07/25/2019 1:08 PM) [id number]
== END | disposition home or self-care (01) ==
LOC: KCIC 08:56
PROVIDERS: ATTEND Family Medicine
DX: S89.92XA Unspecified injury of left lower leg, initial encounter (principal); M79.89 Other specified soft tissue disorders; W19.XXXA Unspecified fall, initial encounter; Y93.89 Activity, other specified; Y92.89 Other specified places as the place of occurrence of the external cause; Y99.8 Other external cause status
CPT/HCPCS: 73562